=== PATIENT | male | born 1985 | race Caucasian/White ===

== ENCOUNTER 2019-06-12 11:21 | Emergency (ER) | payer MEDICAID ==
[~2019-06-12] VITALS: Ht 182.9 cm; Wt 124.7 kg
[2019-06-12 11:55] VITALS: BP_SYST 129
[2019-06-12] MEDS ORDERED: KETOROLAC TROMETHAMINE 60 MG/2 ML VIAL IM ONE (13:45)
[2019-06-12] MEDS ORDERED: KETOROLAC TROMETHAMINE 30 MG VIAL ONE (14:13)
[2019-06-12 14:25] VITALS: BP_SYST 129
== END 2019-06-12 14:25 | disposition home or self-care (01) ==
LOC: SED 11:21
DX: S46.912A Strain of unspecified muscle, fascia and tendon at shoulder and upper arm level, left arm, initial encounter (principal); R03.0 Elevated blood-pressure reading, without diagnosis of hypertension; S83.92XA Sprain of unspecified site of left knee, initial encounter; V49.9XXA Car occupant (driver) (passenger) injured in unspecified traffic accident, initial encounter; Y93.89 Activity, other specified; Y92.488 Other paved roadways as the place of occurrence of the external cause; Y99.8 Other external cause status
CPT/HCPCS: 29505; 73030; 73564; 96372; 99283; J1885